=== PATIENT | female | born 1970 | race Caucasian/White ===

== ENCOUNTER 2017-12-03 12:42 | Emergency (ER) | payer MEDICAID ==
[~2017-12-03] VITALS: Ht 157.5 cm; Wt 91.6 kg
[2017-12-03 13:01] VITALS: Ht 157.5 cm; Wt 91.6 kg
[2017-12-03 13:32] LABS: BASOPHIL % 0.4 % (0-2); PLATELET COUNT 191 x10^3mcL (130-400); RED CELL DISTRIBUTION WIDTH 13.5 % (11.5-14.5)
[2017-12-03 13:37] LABS: CALCIUM 8.5 mg/dL (8.5-10.1); CARBON DIOXIDE 24.3 mmol/L (21-32); CHLORIDE SERUM 106 mmol/L (98-107); CREATININE SERUM 0.8 mg/dL (0.6-1.0); GFR1 > 60 mL/min; GLUCOSE SERUM 146 mg/dL (74-106); POTASSIUM SERUM 3.8 mmol/L (3.5-5.1); SODIUM SERUM 140 mmol/L (136-145)
[2017-12-03 13:43] LABS: ALKALINE PHOSPHATASE 94 U/L (46-116); ALT/SGPT 43 U/L (14-59); AMYLASE 36 U/L (25-115); AST/SGOT 20 U/L (15-37); BILIRUBIN TOTAL 0.27 mg/dL (0.20-1.00); LIPASE 98 IU/L (73-393); TOTAL PROTEIN, SERUM 6.9 g/dL (6.4-8.2)
[2017-12-03 13:44] LABS: ALBUMIN 2.9 g/dL (3.4-5.0)
[2017-12-03 14:04] VITALS: BP 128/75
== END 2017-12-03 15:08 | disposition home or self-care (01) ==
LOC: ED 12:42
PROVIDERS: Emergency Medicine
DX: K57.92 Diverticulitis of intestine, part unspecified, without perforation or abscess without bleeding (principal); Z88.0 Allergy status to penicillin
CPT/HCPCS: 36415; 83880; J1885

== ENCOUNTER 2018-10-08 19:44 | Emergency (ER) | payer OTHER ==
[~2018-10-08] VITALS: Ht 157.5 cm; Wt 93.9 kg
[2018-10-08 19:55] VITALS: Ht 157.5 cm; Wt 93.9 kg
[2018-10-08 22:34] VITALS: BP 120/67
== END 2018-10-08 22:34 | disposition home or self-care (01) ==
LOC: ED 19:44
DX: M43.6 Torticollis (principal); I10 Essential (primary) hypertension; Z88.1 Allergy status to other antibiotic agents
CPT/HCPCS: J1885

== ENCOUNTER 2019-04-10 11:54 | Emergency (ER) | payer OTHER ==
[~2019-04-10] VITALS: Ht 157.5 cm; Wt 93.4 kg
[2019-04-10 11:59] VITALS: BP 163/90; Ht 157.5 cm; Wt 93.4 kg
== END 2019-04-10 14:43 | disposition home or self-care (01) ==
LOC: ED 11:54
DX: R51 Headache (principal); R42 Dizziness and giddiness; R20.2 Paresthesia of skin; I10 Essential (primary) hypertension; Z88.0 Allergy status to penicillin

== ENCOUNTER 2019-10-26 21:06 | Emergency (ER) | payer OTHER, SELFPAY ==
[~2019-10-26] VITALS: Ht 157.5 cm; Wt 90.7 kg
[2019-10-26 21:18] VITALS: Ht 157.5 cm; Wt 90.7 kg
[2019-10-26 22:02] LABS: BASOPHIL % 0.3 % (0-2); PLATELET COUNT 226 x10^3mcL (130-400); RED CELL DISTRIBUTION WIDTH 12.6 % (11.5-14.5)
[2019-10-26 22:06] LABS: CARBON DIOXIDE 25.4 mmol/L (21-32); CHLORIDE SERUM 103 mmol/L (98-107); CREATININE SERUM 0.8 mg/dL (0.6-1.0); GFR1 > 60 mL/min; GLUCOSE SERUM 259 mg/dL (74-106); POTASSIUM SERUM 3.5 mmol/L (3.5-5.1); SODIUM SERUM 139 mmol/L (136-145)
[2019-10-26 22:12] LABS: ALKALINE PHOSPHATASE 58 U/L (46-116); ALT/SGPT 82 U/L (14-59); AST/SGOT 39 U/L (15-37); BILIRUBIN TOTAL 0.5 mg/dL (0.20-1.00); C REACTIVE PROTEIN 8.8 mg/dL (<=0.9); LACTIC DEHYDROGENASE (LDH) 258 U/L (100-190); TOTAL PROTEIN, SERUM 6.9 g/dL (6.4-8.2)
[2019-10-26 22:13] LABS: ALBUMIN 2.7 g/dL (3.4-5.0)
[2019-10-27 00:18] VITALS: BP 104/72
== END 2019-10-27 00:18 | disposition home or self-care (01) ==
LOC: ED 21:06
PROVIDERS: Specialist
DX: J18.1 Lobar pneumonia, unspecified organism (principal); I10 Essential (primary) hypertension; Z88.1 Allergy status to other antibiotic agents; Z98.890 Other specified postprocedural states
CPT/HCPCS: 36415; 83880; 87804; J1885; Q0092; U0003-CS

== ENCOUNTER 2019-10-28 11:06 | Emergency (ER) | payer OTHER, SELFPAY ==
[~2019-10-28] VITALS: Ht 157.5 cm; Wt 92.1 kg
[2019-10-28 11:10] VITALS: Ht 157.5 cm; Wt 92.1 kg
[2019-10-28 11:44] VITALS: BP 125/71
== END 2019-10-28 11:44 | disposition home or self-care (01) ==
LOC: ED 11:06
DX: T40.2X5A Adverse effect of other opioids, initial encounter (principal); I10 Essential (primary) hypertension; Z88.0 Allergy status to penicillin; Y92.89 Other specified places as the place of occurrence of the external cause

== ENCOUNTER 2019-11-02 13:54 | Emergency (ER) | payer OTHER, SELFPAY ==
[~2019-11-02] VITALS: Ht 157.5 cm; Wt 91.2 kg
[2019-11-02 14:00] VITALS: Ht 157.5 cm; Wt 91.2 kg
[2019-11-02 15:12] VITALS: BP 125/76
== END 2019-11-02 15:12 | disposition home or self-care (01) ==
LOC: ED 13:54
DX: U07.1 COVID-19 (principal); J12.89 Other viral pneumonia; I10 Essential (primary) hypertension; Z88.1 Allergy status to other antibiotic agents
CPT/HCPCS: Q0092